=== PATIENT | female | born 1975 | race Caucasian/White ===

== ENCOUNTER 2023-09-04 12:24 | Outpatient (CLI) | payer OTHER ==
[2023-09-04 13:58] LABS: Hematocrit 34.9 % (34.9-44.5); Hemoglobin 11.2 g/dL (12.0-15.5); Mean Corpuscular HGB CONC 32.1 g/dL (32.0-36.0); Mean Corpuscular Hemoglobin 27.5 pg (27.0-33.0); Mean Corpuscular Volume 85.7 fl (81.6-98.3); Mean Platelet Volume 10.4 fl (7.4-10.4); Platelet Count 368 10x3/uL (150-450); RBC Distribution Width 14.1 % (11.5-14.5); Red Blood Cell (RBC) Count 4.07 10x6/uL (3.90-5.03); White Blood Cell (WBC) Count 6.8 10x3/uL (3.5-10.5)
[2023-09-04 14:27] LABS: BHCG - Serum Negative (NEGATIVE); Pregs Control Background? CLEAR/WHITE (CLR/WHITE); Pregs Control Bar Appear? YES (CONTROL BAR)
== END 2023-09-04 12:25 | disposition home or self-care (01) ==
LOC: CSHLAB 12:24
PROVIDERS: ATTEND Obstetrics & Gynecology
DX: Z01.812 Encounter for preprocedural laboratory examination (principal); N92.0 Excessive and frequent menstruation with regular cycle
CPT/HCPCS: 84703; 85027

== ENCOUNTER 2023-09-05 07:50 | Day surgery (SDC) | payer OTHER ==
[2023-09-04 13:20] VITALS: BMI 38.8
[2023-09-05] MEDS ORDERED: Gabapentin 300 MG CAP ONE (08:02)
[2023-09-05] MEDS ORDERED: Famotidine/PF 20 mg/2ml Vial ONE (08:03)
[2023-09-05] MEDS ORDERED: CeleCOXIB 100 MG CAP ONE (08:03)
[2023-09-05] MEDS ORDERED: Midazolam HCl 2 mg/2 ml Vial ONE ×2 (09:38→10:17)
[2023-09-05] MEDS ORDERED: Vasopressin 20 UNITS/ML VIAL ONE (10:13)
[2023-09-05] MEDS ORDERED: Ondansetron PF 4 MG/2 ML Vial ONE (10:16)
[2023-09-05] MEDS ORDERED: Ketorolac Tromethamine 30 MG (1 mL) VIAL ONE ×2 (10:16→10:17)
[2023-09-05] MEDS ORDERED: Dexamethasone 20 MG/5 ML VIAL ONE (10:16)
[2023-09-05] MEDS ORDERED: PROPOFOL 20 ML ONE (10:16)
[2023-09-05] MEDS ORDERED: Glycopyrrolate 0.2 MG/ML 5 ML SYRINGE ONE (10:17)
[2023-09-05] MEDS ORDERED: Lidocaine 1% PF 5 ML VIAL ONE (10:17)
[2023-09-05] MEDS ORDERED: fentaNYL 50 mcg/mL 1 mL Vial ONE (10:17)
[2023-09-05] MEDS ORDERED: CEFAZOLIN 2 GM VIAL ONE (10:21)
== END 2023-09-05 12:30 | disposition home or self-care (01) ==
LOC: CSHSDC 07:50
PROVIDERS: ATTEND Obstetrics & Gynecology
PROC: 0UDB8ZX Extraction of Endometrium, Via Natural or Artificial Opening Endoscopic, Diagnostic (ICD-10-PCS; principal; 2023-09-05)
PROC: 0U5B8ZZ Destruction of Endometrium, Via Natural or Artificial Opening Endoscopic (ICD-10-PCS; principal; 2023-09-05)
DX: N85.00 Endometrial hyperplasia, unspecified (principal); N92.0 Excessive and frequent menstruation with regular cycle; E78.5 Hyperlipidemia, unspecified; F32.A Depression, unspecified; Z88.0 Allergy status to penicillin; Z79.899 Other long term (current) drug therapy; Z87.891 Personal history of nicotine dependence
CPT/HCPCS: 88305; J1100; J1885; J2250; J2405; J2704; J3010; S0028